=== PATIENT | female | born 1965 | race Caucasian/White ===

== ENCOUNTER 2018-10-06 09:54 | Inpatient (IN) ==
[2018-10-06] MEDS ORDERED: Sodium Chloride 0.9% 1,000 ML PRIMARY IV ONE (10:22)
--- NOTE | 2018-10-06 10:44 | PDOC ---
General Adult HPI - General Chief Complaint: Genitourinary Complaint Stated Complaint: RIGHT FLANK PAIN, FEVER/CHILLS Date Seen by Provider: 10/06/18 Time Seen by Provider: 10:00 Source: POSITIVE: Patient Exam Limitations: POSITIVE: No limitations Nurse's Notes Reviewed & Considered: Yes - History of Present Illness Initial Comment: The patient is a 53-year-old female who presents to the emergency department with complaints of cloudy urine and some right flank pain. The patient does have a history of renal calculi. She was also seen here in the emergency department approximately 3 weeks ago with complaints of right flank pain. She was found to have 2 nonobstructing stones in the right kidney as well as evidence of a UTI. She was treated with a dose of IV antibiotic as well as oral antibiotics at home. The culture ended up growing out Klebsiella which was sensitive to cephalosporins. The patient states that she felt well while she was taking her antibiotics and for about a week afterward. For the past for 5 d ays however she has noticed that she has had some cloudy urine. Yesterday she had some right flank pain which has now resolved. She does however have some subjective chills and general malaise. She is unsure whether she was running a fever at home. She denies any current abdominal pain. She did have a lumbar surgery approximately 2 months ago and had to have a seroma drained. She denies any increase in back pain. Her noticed that there was some swelling in the area of the incision. She denies any increased leg numbness or weakness although she does have some continued left leg symptoms after her surgery. Have you received a tetanus shot in the past 10 years?: Unknown - Patient Home Medications Home Medications: Home Medications Hydrocodone/Acetaminophen [Hydrocodon-Acetaminoph 7.5-325] 1 ea PO Q6-8H PRN Ibuprofen 600 mg PO Q6H PRN 10/06/18 - Patient Allergies Allergies/Adverse Reactions: Allergies Allergy/AdvReac Type Severity Reaction Status Date / Time tetracycline [Tetracycline] Allergy Intermediate SWELLING Verified 10/06/18 09:58 Past Medical History - heen HEENT History: Dentures/Partials Cardiovascular History: Denies History Respiratory History: Denies History, Snoring Gastrointestinal History: GERD Additional Gastrointestinal History: OCCASIONAL GERD Genitourinary History: Kidney Stones Additional Genitourinary History: MULTIPLE KIDNEY STONES Endocrine History: Denies History Musculoskeletal History: Back Pain Prosthesis or Implant: No Neurological History: Denies History Blood Disorders: Denies History Psychiatric History: Denies History History of Sexually Transmitted Diseases: No Female Reproductive History: Tubal Ligation, Hysterectomy Obstetrical History: Denies History Cancer History: Denies History In Past Year Been Physically Harmed or Verbally Threatened: No History of MDRO: No History of Other Communicable Diseases: No Tobacco Use: Former Smoker Alcohol Use: None In the Past 12 Months, Have Used or Abuse Any Substance: None Previous Surgical History: Yes Type / Date of Surgery: TUBAL/ BACK SX X2/TOTAL HYST/LITHOTRIPSY/TONSILS Anesthesia Reactions: No Malignant Hyperthermia: No Significant Family History: No pertinent family hx, Heart disease, Cancer, Diabe brett, Renal disease Past Medical History Reviewed: Reviewed - No Changes ROS - Limitations ROS Limitations: No Limitations Constitution: REPORTS: Chills Cardiovascular: REPORTS: Denies Cardiac Symptoms Respiratory: REPORTS: Denies Resp Symptoms Neurological: REPORTS: Denies Neuro Symptoms Gastrointestinal: DENIES: Abdominal Pain, Nausea, Vomitting Musculoskeletal: REPORTS: Denies MS Symptoms Genitourinary: REPORTS: Flank Pain (Right-sided), Other (Cloudy urine). DENIES: Dysuria, Difficulty Urinating Eyes: REPORTS: Denies Symptoms ENT: REPORTS: Denies Symptoms Skin: DENIES: Rash General Adult Exam - General Appearance General Appearance: POSITIVE: Alert, Cooperative, No Acute Distress - HEENT HEENT: POSITIVE: Head Inspection Nml, Eyes Inspection Nml, Ears Inspection Nml, Nose Inspection Nml, Pharynx Inspect. Nml, PERRL - Neck Neck: POSITIVE: Normal Inspection. NEGATIVE: Lymphadenopathy - Respiratory Respiratory: POSITIVE: No Respiratory Distress, Breath Sounds Normal - Cardiovascular Cardiovascular: POSITIVE: Regular Rate & Rhythm, No Murmur Peripheral Pulses: Dorsalis-pedis (R): 2+, Dorsalis-pedis (L): 2+ - Abdomen Abdomen: Soft: (All Quadrants), Denies Tenderness: (All Quadrants), No Distention: (All Quadrants) - Back Back: POSITIVE: Other (She does have a small incision in the lower lumbar region, there is no erythema or induration, there is some slight puffiness to the area however there does not appear to be any evidence of infection). NEGATIVE: CVA Tenderness - Extremities Extremity: Normal ROM: (All Extremities), Normal Inspection: (All Extremities) - Neurological / Psychological Neurological: POSITIVE: Oriented X3, vp customer service Normal As Tested, Motor Normal, Sensation Normal General Adult Progress - Results Reviewed by me Xrays/CTs/US Reviewed by me: Yes Discussed with Radiologist: Yes Radiology Findings: CT scan of the abdomen and pelvis without IV contrast shows 2 nonobstructing stones in the right kidney unchanged from previous CT. There is some mild perinephric stranding at the top of the right kidney which is new from previous CT as well as some perinephric stranding around the left kidney which appears unchanged from previous CT. No other acute findings per radiologist. Lab Results Reviewed by Me: Yes Lab Results:: Laboratory Results 10/06/18 10/06/18 10/06/18 10:27 10:27 10:27 WBC 9.67 RBC 3.97 L Hgb 12.0 Hct 35.5 L MCV 89.4 MCH 30.2 MCHC 33.8 RDW Std Deviation 41.2 RDW Coeff of Sugar 12.9 Plt Count 177 MPV 9.7 Immature Gran % (Auto) 0.4 Neut % (Auto) 78.1 Lymph % (Auto) 14.1 Giles % (Auto) 7.1 Eos % (Auto) 0.1 Baso % (Auto) 0.2 Immature Gran # (Auto) 0.04 Neut # (Auto) 7.55 Lymph # (Auto) 1.36 Giles # (Auto) 0.69 Eos # (Auto) 0.01 Baso # (Auto) 0.02 WBC Morphology Comment Normal morphology Plt Morphology Comment Normal morphology RBC Morph Comment Normal morphology VBG pH VBG pCO2 VBG HCO3 VBG Base Excess Sodium 132 L Potassium 3.4 L Chloride 95 L Carbon Dioxide 24 Anion Gap 13 BUN 17 Creatinine 0.9 Estimated GFR > 60 BUN/Creatinine Ratio 18.88 Glucose 455 H* Mean Blood Glucose Hemoglobin A1c Calculated Osmolality 295.0 H Lactic Acid 2.8 H Calcium 10.0 Total Bilirubin 0.6 AST 17 ALT 13 Alkaline Phosphatase 138 H C-Reactive Protein 37.3 H Total Protein 8.0 Albumin 4.2 Globulin 3.9 Albumin/Globulin Ratio 1.00 L Ur Collection Type Urine Color Urine Clarity Urine pH Ur Specific [place] Urine Protein Urine Glucose (UA) Urine Ketones Urine Occult Blood Urine Nitrate Urine Bilirubin Urine Urobilinogen Ur Leukocyte Esterase Urine RBC Urine WBC Ur Squamous Epith Cells Ur Renal Epithelial Cell Urine Crystals Urine Bacteria Urine Casts Urine Mucus Urine Trichomonas Urine Yeast Ur Culture Indicated? 10/06/18 10/06/18 10/06/18 10:39 11:41 Unknown WBC RBC Hgb Hct MCV MCH MCHC RDW Std Deviation RDW Coeff of Sugar Plt Count MPV Immature Gran % (Auto) Neut % (Auto) Lymph % (Auto) Giles % (Auto) Eos % (Auto) Baso % (Auto) Immature Gran # (Auto) Neut # (Auto) Lymph # (Auto) Giles # (Auto) Eos # (Auto) Baso # (Auto) WBC Morphology Comment Plt Morphology Comment RBC Morph Comment VBG pH 7.43 H VBG pCO2 30 L VBG HCO3 20 L VBG Base Excess -4 L Sodium Potassium Chloride Carbon Dioxide Anion Gap BUN Creatinine Estimated GFR BUN/Creatinine Ratio Glucose Mean Blood Glucose 275.971 Hemoglobin A1c 10.87 H Calculated Osmolality Lactic Acid Calcium Total Bilirubin AST ALT Alkaline Phosphatase C-Reactive Protein Total Protein Albumin Globulin Albumin/Globulin Ratio Ur Collection Type Voided specimen Urine Color Yellow Urine Clarity Clear Urine pH 5.0 Ur Specific [place] 1.020 Urine Protein 100 A Urine Glucose (UA) 500 Urine Ketones 15 Urine Occult Blood Moderate H Urine Nitrate Negative Urine Bilirubin Small Urine Urobilinogen 0.2 Ur Leukocyte Esterase Moderate Urine RBC 20-30 Urine WBC >100 H Ur Squamous Epith Cells Few Ur Renal Epithelial Cell None Urine Crystals None Urine Bacteria Many H Urine Casts None Urine Mucus None Urine Trichomonas None Urine Yeast None Ur Culture Indicated? Culture set CBC and BMP: 10/06/18 10:27 10/06/18 10:27 - Patient's Progress MDM / ED Course: The patient was somewhat tachycardic on arrival. Blood cultures and lactate were drawn with initial IV start. The patient did receive 1 L bolus of normal saline. She was not having any active pain here in the emergency department. The patient's blood work reveals a normal white blood cell count, her CRP is significantly elevated at 37. Urinalysis reveals greater than 100 WBCs as well as some RBCs, culture is pending. Her lactate is mildly elevated at 2.8. Her blood sugar was also significantly elevated at 455. Subsequent venous blood gas reveals a normal pH. After administration of fluids her blood sugar had come down to 334. Her hemoglobin A1c is markedly elevated over 10. I did discuss the patient with Dr. Maharaj and he recommended repeat imaging to make sure that she has not developed any obstruction. The CT of the abdomen and pelvis was repeated and shows continued nonobstructing stones in the right kidney unchanged from previous imaging. She does have some mild perinephric stranding around the right kidney which was not present on the previous CT. She also continues to have some left-sided perinephric stranding basically unchanged from previous imaging. No other acute findings per radiologist. The patient did receive 2 g of Rocephin IV and will be admitted per Dr. Maharaj for further care. The patient is in agreement with this plan. - Consult Counseled: POSITIVE: Patient, Family, RE: Lab Results, RE: Radiology Results, RE: DX, RE: Need for F/U Patient Care Time - Estimated PCT Patient Care Time (In Minutes): 50 Vital Signs - Recent Vital Signs Vital Signs: Vital Signs (Last 8 hours) Temp Pulse Resp BP Pulse Ox 10/06/18 09:57 97.5 F 132 H 16 117/68 98 - VS Reviewed Vital Signs Reviewed: Yes Discharge Clinical Impression: Pyelonephritis, Hyperglycemia Discharge Disposition: Admit to Inpatient Condition: Fair Follow Up With: JOSE SAUCEDO [Primary Care Provider] - Date Decision to Admit to Inpatient: 10/06/18 Time Decision to Admit to Inpatient: 12:45
[2018-10-06 10:48] LABS: BASOPHILS # (AUTO) 0.02 10*3/UL; BASOPHILS % (AUTO) 0.2 % (0-1); EOSINOPHILS # (AUTO) 0.01 10*3/UL; EOSINOPHILS % (AUTO) 0.1 % (0-8); Hematocrit [HCT] 35.5 % (37.0-47.0); LYMPHOCYTES # (AUTO) 1.36 10*3/uL; MEAN CORPUSCULAR HEMOGLOBIN 30.2 PG (27-31); MEAN CORPUSCULAR HGB CONC 33.8 g/dL (33-37); MEAN CORPUSCULAR VOLUME 89.4 FL (81-99); MEAN PLATELET VOLUME 9.7 FL (7.4-12.2); MONOCYTES # (AUTO) 0.69 10*3/UL (0.3-0.8); MONOCYTES % (AUTO) 7.1 % (5-15); NEUTROPHILS # (AUTO) 7.55 10*3/UL; NEUTROPHILS % (AUTO) 78.1 % (50-80); RED BLOOD COUNT 3.97 10^6/uL (4.20-5.40)
[2018-10-06 10:51] LABS: BILIRUBIN,URINE SMALL (NEG); CLARITY,URINE CLEAR (CLEAR); COLOR,URINE YELLOW (Y); GLUCOSE, URINE (UA) 500 mg/dL (NEG); OCCULT BLOOD,URINE MODERATE (NEG); PROTEIN,URINE 100 mg/dl (NEG); UROBILINOGEN,URINE 0.2 EU/dL (0.2)
[2018-10-06 10:52] LABS: PLATELET MORPHOLOGY COMMENT NORMAL MORPHOLOGY (NORM); RBC MORPHOLOGY COMMENT NORMAL MORPHOLOGY (NORM); WBC MORPHOLOGY COMMENT NORMAL MORPHOLOGY (NORM)
[2018-10-06 10:59] LABS: BLOOD UREA NITROGEN 17 mg/dL (7-22); BUN/CREATININE RATIO 18.88 (6-20); SERUM ALBUMIN 4.2 g/dL (3.5-4.8)
[2018-10-06 11:02] LABS: BACTERIA,URINE MANY; RBC,URINE 20-30 /hpf; SQUAMOUS EPITHELIAL CELL,UR FEW; URINE SAMPLE TYPE VOIDED SPECIMEN; WBC,URINE >100
[2018-10-06] MEDS ORDERED: cefTRIAXone Inj 2 GM in Sodium Chloride 0.9% 100 ML IV ONE (11:38)
[2018-10-06 11:46] LABS: HEMOGLOBIN A1C 10.87 % (4.2-6.0)
[2018-10-06 11:57] LABS: VENOUS PH 7.43 (7.32-7.42)
--- NOTE | 2018-10-06 12:52 | DI ---
CT ABDOMEN SCAN WITHOUT IV CONTRAST, 10/06/2018 11:39 AM : Clinical History: Right flank pain. Previous Exam: 09/13/2018. IV Contrast: None administered. Oral Contrast: No oral contrast ordered. Rectal Contrast: No rectal contrast ordered. Lungs: No infiltrate or effusion. Jaron A and Jaron B lines are present indicating chronic intersti tial pulmonary fibrosis. Liver: Hepatomegaly. There is diffuse fatty infiltration. Gallbladder: Grossly normal. Adrenal Glands: Normal. Spleen: Mild splenomegaly. Otherwise normal. Pancreas: Normal. Kidneys: Normal size, shape, position and contour. No hydronephrosis or hydroureter. No left renal or ureteral calculi. There is a small 2-3 mm nonobstructing calculus in the right upper pole and a nono bstructing 6 mm calculus in a right lower pole calyx. These have not changed. On the prior study, the re was perinephric stranding of the left kidney and this has not changed. Since the prior scan, mild perinephric stranding has developed above the upper pole of the right kidney. Lymph Nodes: Normal. Masses: None. Ascites: No ascites. Free Air: None. Spine: Normal lower thoracic and lumbar spine except severe disc space narrowing with sclerosis of th e endplates at L5-S1. READIN. No hydronephrosis or hydroureter. There are 2 right-sided nonobstructing renal calculi are unchan ged and there is no right ureteral calculus. 2. No change in the left-sided perinephric stranding from the prior exam. Interval development of a small amount of perinephric stranding above the upper pole of the right kidney. 3. Hepatosplenomegaly with fatty infiltration of the liver. 4. Chronic interstitial pulmonary fibrosis. CT PELVIS SCAN WITHOUT IV CONTRAST, 10/06/2018 11:39 AM: Clinical History: See above. Previous Exam: 09/13/2018. Contrast: None administered. Masses: No masses or enhancing lesions. Ascites: None. Free Air: None. Lymph Nodes: No adenopathy. Appendix: Normal. Small Bowel: Normal small bowel, terminal ileum, and ileocecal valve. Colon: Normal. Uterus: Status post hysterectomy. Ovaries: Status post bilateral salpingo-oophorectomy. Bladder: Normal. Hernias: There is a very small umbilical hernia through which only mesenteric fat has herniated. Bony Pelvis: Normal sacrum, pelvic bones, and hips. READING: Normal CT scan of the pelvis without IV contrast.
--- NOTE | 2018-10-06 12:55 | PDOC ---
HPI - History of Present Illness History of Present Illness: This very nice 53-year-old female admitted to the emergency room with complaints of the right flank pain and cloudy urine. She was seen in the emergency depar tment 3 weeks ago with the complaints of right flank pain that time she had 2 nonobstructing stones in the right kidney as well as GI is treated with IV antibiotics in the ER and then oral antibiotics at home culture showed Klebsiella yesterday she had flank pain and cloudy urine and some chills. She also had the surgery lumbar 2 months ago and had a seroma drained at that time. Repeat CT scan shows no obstruction from stones. She has no white count no left shift. She does have elevated sugar of 400 range and also hemoglobin A1c is 10.4 WBC is new onset Diabetes Past Medical History Medical History: Lower back chronic back pain Tobacco Use: Former Smoker In the Past 12 Months, Have Used or Abuse Any of the Following Substance: None Medication / Allergies Home Medications: Home Medications Medication Instructions Recorded Confirmed Type Hydrocodone/Acetaminophen 1 ea PO Q6-8H PRN 10/06/18 10/06/18 History [Hydrocodon-Acetaminoph 7.5-325] Ibuprofen 600 mg PO Q6H PRN 10/06/18 10/06/18 History Allergies/Adverse Reactions: Allergies Allergy/AdvReac Type Severity Reaction Status Date / Time tetracycline [Tetracycline] Allergy Intermediate SWELLING Verified 10/06/18 09:58 Review of Systems - Review of Systems All Systems: Reviewed & No Additional Complaints Except as Stated - Cardiovascular Cardiovascular: DENIES: Negative System Review, Chest Pain, Edema, Syncope, Palpitations, Orthopnea, Paroxysmal Nocturnal Dyspnea, Other, See HPI - Gastrointestinal Gastrointestinal / Abdominal: DENIES: Negative System Review, Nausea, Vomiting, Diarrhea, Constipation, Abdominal Pain, Bloody Stool, Poor Appetite, Heartburn, Regurgitation, Bloating, Lactose Intolerance, Melena, Bright Red Blood per Rectum, Other, See HPI - Genitourinary Genitourinary: DENIES: Negative System Review, Pain, Burning, Hematuria, Incontinence, Urgency, Hesitant Stream, Decreased Stream, Nocutria, Discharge, Sexual Dysfunction, Other, See HPI Exam - Vitals Vital Signs: Vital Signs Temperature 97.5 F Temperature Source Temporal Artery Scan Pulse Rate [Pulse Oximeter 132 Right] Respiratory Rate 16 Blood Pressure [Left Arm] 117/68 Pulse Ox 98 Oxygen Delivery Method Room Air Height 5 ft 3 in Weight 190 lb - General General Appearance: No Acute Distress, Cooperative - Head Head Exam: Normal Inspection, Normocephalic, Atraumatic - Eye Eye Exam: POSITIVE: Normal Appearance, PERRL, EOMI, No Scleral Icterus - Neck Neck Exam: Normal Inspection, Full ROM, No Tenderness, No Lymphadenopathy, No Thyromegaly, JVP is not Raised - Respiratory Respiratory Exam: POSITIVE: Clear to Auscultation - Bilaterally, Breathing Non Labored, Normal To Percussion, Normal to Percussion and Palpation - Cardiovascular Cardiovascular Exam: POSITIVE: RRR, No Murmur, No Clicks, No Gallops, No Rubs, PMI Non-Displaced - GI/Abdominal GI/Abdominal Exam: POSITIVE: Normal Bowel Sounds, Non Tender, Non Distended, Soft, No Masses, No Hepatomegaly, No Splenomegaly, No Organomegaly - Extremities Extremities Exam: POSITIVE: Normal Inspection, Full ROM, Normal Capillary Refill, No Clubbing Present, No Edema Present, No Cyanosis Present, Negative Eleni's sign, Dosalis Pedis Pulses - Stong & Regular - Back Back Exam: POSITIVE: Normal Inspection, Full ROM, No CVA Tenderness Additional Back Exam Details: No seroma no redness on the incision for lower back surgery - Neurological Neurological Exam: POSITIVE: Alert, No Facial Droop, Speech Intact / Clear Results - Labs CBC and BMP: 10/06/18 10:27 10/06/18 10:27 Assessment and Plan - Patient Problems (1) New onset type 2 diabetes mellitus Current Visit: Yes Status: Acute Comment: Lantus 10 mg check sugars before meals and at bedtime and sliding scale Code(s): E11.9 - Type 2 diabetes mellitus without complications (2) Pyelonephritis Current Visit: No Status: Acute Comment: Rocephin 2 g daily Code(s): N12 - Tubulo-interstitial nephritis, not specified as acute or chronic
[2018-10-06] MEDS ORDERED: DOCUSATE 100 MG CAPSULE PO PRN (13:18)
[2018-10-06] MEDS ORDERED: CALCIUM CARBONATE 500 MG (TUMS) CHEWABLE TABLET PO PRN (13:18)
[2018-10-06] MEDS ORDERED: LIDOCAINE W/ SODIUM BICARB 0.5 ML SYR SUBD PRN (13:18)
[2018-10-06] MEDS ORDERED: ONDANSETRON 4 MG/2 ML VIAL IVP PRN (13:18)
[2018-10-06] MEDS ORDERED: HYDROcodone-APAP 7.5 MG-325 MG TABLET PO PRN (13:18)
[2018-10-06] MEDS: Lactated Ringers 1,000 ML PRIMARY IV SCH ×2 (13:50→21:22)
[2018-10-06] MEDS: Insulin Lispro Flexpen 300 UNIT/3 ML INSULN.PEN SUBCUT SCH ×3 (14:24→21:25)
[2018-10-06] MEDS: MORPHINE SULFATE 2 MG/1 ML IVP PRN ×3 (16:54→21:23)
[2018-10-06] MEDS: HYDROcodone-APAP 7.5 MG-325 MG TABLET PO PRN ×2 (18:04→22:20)
[2018-10-06] MEDS: ACETAMINOPHEN 325 MG TABLET PO PRN (21:23)
[2018-10-06] MEDS: CYCLOBENZAPRINE 10 MG TABLET PO SCH (21:23)
[2018-10-06] MEDS: Insulin Glargine SoloStar Inj 100 UNIT/ML INSULN.PEN SUBCUT SCH (21:25)
[2018-10-07] MEDS: HYDROcodone-APAP 7.5 MG-325 MG TABLET PO PRN ×5 (02:24→20:59)
[2018-10-07] MEDS: Lactated Ringers 1,000 ML PRIMARY IV SCH ×2 (04:38→14:12)
[2018-10-07] MEDS: ACETAMINOPHEN 325 MG TABLET PO PRN ×2 (04:38→20:34)
[2018-10-07 04:54] LABS: BASOPHILS # (AUTO) 0.02 10*3/UL; BASOPHILS % (AUTO) 0.2 % (0-1); EOSINOPHILS # (AUTO) 0.03 10*3/UL; EOSINOPHILS % (AUTO) 0.3 % (0-8); Hemoglobin [HGB] 10.9 g/dL (12.0-16.0); LYMPHOCYTES # (AUTO) 1.55 10*3/uL; MEAN CORPUSCULAR HEMOGLOBIN 30.4 PG (27-31); MEAN CORPUSCULAR HGB CONC 34.1 g/dL (33-37); MEAN CORPUSCULAR VOLUME 89.4 FL (81-99); MEAN PLATELET VOLUME 9.8 FL (7.4-12.2); MONOCYTES # (AUTO) 0.86 10*3/UL (0.3-0.8); MONOCYTES % (AUTO) 7.6 % (5-15); NEUTROPHILS # (AUTO) 8.76 10*3/UL; NEUTROPHILS % (AUTO) 77.7 % (50-80); RED BLOOD COUNT 3.58 10^6/uL (4.20-5.40)
[2018-10-07 05:01] LABS: PLATELET MORPHOLOGY COMMENT NORMAL MORPHOLOGY (NORM); RBC MORPHOLOGY COMMENT NORMAL MORPHOLOGY (NORM); WBC MORPHOLOGY COMMENT NORMAL MORPHOLOGY (NORM)
[2018-10-07 05:22] LABS: BLOOD UREA NITROGEN 13 mg/dL (7-22); SERUM ALBUMIN 3.2 g/dL (3.5-4.8)
[2018-10-07] MEDS: Insulin Lispro Flexpen 300 UNIT/3 ML INSULN.PEN SUBCUT SCH ×4 (07:00→20:31)
[2018-10-07] MEDS: POTASSIUM CHLORIDE 20 MEQ TAB PO SCH ×2 (09:01→20:34)
[2018-10-07] MEDS: CYCLOBENZAPRINE 10 MG TABLET PO SCH ×3 (09:02→20:34)
--- NOTE | 2018-10-07 09:33 | PDOC(PROG) ---
Interval History: Patient has a headache this morning her sugars look better no flank pain no chest pain Objective : Data - Labs CBC and BMP: 10/07/18 04:30 10/07/18 04:30 Objective : Exam - General General Appearance: Cooperative - Respiratory Respiratory Exam: Clear to Auscultation - Bilaterally, Breathing Non Labored, Normal To Percussion, Normal to Percussion and Palpation - Cardiovascular Cardiovascular Exam: RRR, No Murmur, No Clicks, No Gallops, No Rubs, PMI Non- Displaced - GI/Abdominal GI/Abdominal Exam: Normal Bowel Sounds, Non Tender, Non Distended, Soft, No Masses, No Hepatomegaly, No Splenomegaly, No Organomegaly - Extremities Extremities Exam: No Clubbing Present, No Edema Present, No Cyanosis Present - Neurological Neurological Exam: Alert, Oriented x 3, No Facial Droop, Speech Intact / Clear Assessment and Plan - Patient Problems (1) New onset type 2 diabetes mellitus Current Visit: Yes Status: Acute Comment: Sugars much better received 10 units of Lantus last night sugars at 189 this morning I believe 10 units might be appropriate consider adding metformin by mouth and following up with primary care physician also consult diabetic diabetic education Code(s): E11.9 - Type 2 diabetes mellitus without complications (2) Pyelonephritis Current Visit: No Status: Acute Comment: Continue Rocephin Code(s): N12 - Tubulo-interstitial nephritis, not specified as acute or chronic (3) Chronic back pain Current Visit: Yes Status: Acute Comment: On narcotics and muscle relaxers patient was already on these at home by her back specialist Dr. Pryor Code(s): M54.9 - Dorsalgia, unspecified; G89.29 - Other chronic pain
[2018-10-07] MEDS: KETOROLAC 15 MG/1 ML VIAL IVP PRN ×3 (10:03→21:55)
[2018-10-07] MEDS ORDERED: cefTRIAXone Inj 2 GM in Sodium Chloride 0.9% 100 ML IV SCH (12:00)
[2018-10-07] MEDS: Insulin Glargine SoloStar Inj 100 UNIT/ML INSULN.PEN SUBCUT SCH (20:35)
[2018-10-07] MEDS: Meropenem Inj 1 GM in Sodium Chloride 0.9% 100 ML IV SCH (20:59)
--- NOTE | 2018-10-07 21:30 | PDOC(PROG) ---
General Note Progress Note: Patient's continue to run fever, I spoke with the Dr. Jimenez, urologist at [facility] because of presence of renal stones he suggested to continue antibiotics I did discuss with him that I'm switching to meropenem until we have identification and he agreed. He suggested CT with IV contrast tomorrow if she continue to run fever to rule out abscesses. He said usually for pyelonephritis it takes few days for the fever to come down.
[2018-10-08] MEDS: HYDROcodone-APAP 7.5 MG-325 MG TABLET PO PRN ×5 (01:27→19:22)
[2018-10-08] MEDS: Meropenem Inj 1 GM in Sodium Chloride 0.9% 100 ML IV SCH ×3 (04:40→20:02)
[2018-10-08] MEDS: KETOROLAC 15 MG/1 ML VIAL IVP PRN ×3 (04:58→20:02)
[2018-10-08 07:05] LABS: BASOPHILS # (AUTO) 0.01 10*3/UL; BASOPHILS % (AUTO) 0.1 % (0-1); EOSINOPHILS # (AUTO) 0.02 10*3/UL; EOSINOPHILS % (AUTO) 0.2 % (0-8); Hematocrit [HCT] 31.4 % (37.0-47.0); Hemoglobin [HGB] 10.6 g/dL (12.0-16.0); LYMPHOCYTES # (AUTO) 0.92 10*3/uL; MEAN CORPUSCULAR HEMOGLOBIN 30.7 PG (27-31); MEAN CORPUSCULAR HGB CONC 33.8 g/dL (33-37); MEAN PLATELET VOLUME 9.5 FL (7.4-12.2); NEUTROPHILS # (AUTO) 6.69 10*3/UL; NEUTROPHILS % (AUTO) 82.8 % (50-80); RED BLOOD COUNT 3.45 10^6/uL (4.20-5.40)
[2018-10-08 07:10] LABS: PLATELET MORPHOLOGY COMMENT NORMAL MORPHOLOGY (NORM); RBC MORPHOLOGY COMMENT NORMAL MORPHOLOGY (NORM); WBC MORPHOLOGY COMMENT NORMAL MORPHOLOGY (NORM)
[2018-10-08] MEDS: Insulin Lispro Flexpen 300 UNIT/3 ML INSULN.PEN SUBCUT SCH ×4 (07:10→20:32)
[2018-10-08 07:14] LABS: BLOOD UREA NITROGEN 15 mg/dL (7-22)
[2018-10-08] MEDS: ACETAMINOPHEN 325 MG TABLET PO PRN (07:19)
--- NOTE | 2018-10-08 07:28 | PDOC(PROG) ---
Date of Service: 10/08/18 Time of Service: 07:00 Interval History: Subjective Patient came into the hospital with history of pain in her right side, foggy urine, not thinking clearly and headaches. Was found to have pyelonephritis. She did report that 3 or 4 weeks ago she had a kidney infection she was given IV Rocephin once and then she was prescribed oral antibiotics however she doesn't know the name. She said she did okay after that until last week when she noticed a change in the urine color. She had issues with her back and she had surgery May last year. She saw her surgeon last week on Saturday and did nerve studies. She thinks that she may need to have fusion but he told her that she need to quit smoking before he would do surgery again on her. She did say she felt short of breath after she walked to the bathroom earlier today. Objective : Data - Labs CBC and BMP: 10/08/18 07:02 10/08/18 07:02 Objective : Exam - General General Appearance: No Acute Distress, Cooperative - Head Head Exam: Normal Inspection - Eye Eye Exam: Normal Appearance - ENT ENT Exam: Normal Exam - Neck Neck Exam: Normal Inspection - Respiratory Respiratory Exam: Clear to Auscultation - Bilaterally - Cardiovascular Cardiovascular Exam: Tachycardia - GI/Abdominal GI/Abdominal Exam: Normal Bowel Sounds, Non Distended, Soft, No Organomegaly Additional GI/Abdominal Exam Details: Minimal tenderness in the right flank. - Rectal Rectal Exam: Deferred - External Exam: Deferred - Extremities Extremities Exam: Normal Inspection - Back Back Exam: Normal Inspection - Neurological Neurological Exam: Alert, Oriented x 3, CN II-XII Intact, No Facial Droop, Speech Intact / Clear - Psychiatric Psychiatric Exam: Normal Affect Assessment and Plan - Patient Problems (1) Pyelonephritis Current Visit: Yes Status: Acute Comment: Yesterday she continued to run fever as high as 103, I switched her antibiotics to meropenem until I have culture result. It's not clear to me what kind of oral antibiotic she received, she may be having a recurrence of infection. May be secondary to the stones. We'll try to figure out with oral antibiotic she received. We'll discuss with infectious disease also. Code(s): N12 - Tubulo-interstitial nephritis, not specified as acute or chronic (2) New onset type 2 diabetes mellitus Current Visit: Yes Status: Acute Comment: Blood sugar is acceptable with the current insulin dosage continue. Code(s): E11.9 - Type 2 diabetes mellitus without complications (3) Chronic back pain Current Visit: Yes Status: Acute Comment: Continue current pain medications as needed. Code(s): M54.9 - Dorsalgia, unspecified; G89.29 - Other chronic pain (4) Tachycardia Current Visit: Yes Status: Acute Comment: Looks sinus on the monitor, will order an EKG. Will order cardiodynamics. I did order a BNP. Because of the shortness of breath I will do a CT of her chest will do CT of the abdomen to look for kidney abscess because of the high fever that she had last night. We'll give her a trial of fluids and see whether that would help lower her heart rate. Will order T4 and TSH. Code(s): R00.0 - Tachycardia, unspecified
[2018-10-08] MEDS: Sodium Chloride 0.9% 250 ML IV SCH ×5 (08:02→11:35)
[2018-10-08] MEDS: CYCLOBENZAPRINE 10 MG TABLET PO SCH ×3 (08:41→20:03)
[2018-10-08] MEDS: POTASSIUM CHLORIDE 20 MEQ TAB PO SCH (08:41)
--- NOTE | 2018-10-08 08:48 | EKG ---
[address] [address] Measurements Intervals [place] Rate: 120 P: 66 TX: 171 QRS: 34 QRSD: 89 T: 47 QT: 304 QTc: 375 Interpretive Statements SINUS TACHYCARDIA ABNORMAL RHYTHM ECG No previous ECG available for comparison Electronically Signed On 10-08-18 11:45:31 MST by Adam Muñoz [email or web address]
--- NOTE | 2018-10-08 09:34 | DI ---
CT ANGIOGRAM OF THE CHEST, 10/08/2018 7:23 AM : Clinical History: Tachycardia. Shortness of breath. Previous Exam: None at this facility. Technique: Scans from base of neck to lung bases with IV contrast. Bolus tracking protocol was used f or timing the injection. Non-MIPS and MIPS sagittal/coronal images generated. IV Contrast: 75 mL of Isovue 300. Base of Neck: Normal. Nodes: Normal axillary and supraclavicular lymph nodes. There are mildly enlarged lymph nodes in the superior mediastinum, in the subcarinal region, and in both marija, more so on the right side than the left. Heart: Normal. Scattered calcifications are present in the middle third of the LAD in the proximal po rtion of the left circumflex artery and right coronary artery. Aorta: Normal thoracic aorta. No aneurysm or dissection. Pulmonary Arteries: Normal. No pulmonary emboli or infarcts; no pulmonary hypertension. Lungs: There are isolated patchy areas of "groundglass" opacification throughout the lungs. There are extensive Jaron A and Jaron B lines present in this is more suggestive of fluid in the interstitia l space rather than severe fibrosis. Effusion(s): Very small right pleural effusion. Nodules: None. Bony Structures: Normal visualized portions of ribs, sternum, scapulae, clavicles, and shoulders. Nor mal visualized portions of thoracic spine. READIN. Normal CTA of the chest. There are no pulmonary emboli or pulmonary infarcts. 2. The heart appears normal but with calcifications in all 3 major coronary artery distributions. Th ere are extensive and prominent Jaron B lines Jaron B lines and the appearance is more compatible w ith fluid in the interstitial space secondary to either CHF or fluid overload rather than extensive p ulmonary fibrosis. This can be confirmed with PA and lateral chest x-rays. Small right pleural effusi on. 3. There are multiple patchy areas of "groundglass" opacification and this carries a large and nonsp ecific differential for etiologies. Infection is one possibility. This should be correlated with the clinical findings.
--- NOTE | 2018-10-08 09:55 | DI ---
CT ABDOMEN SCAN WITH IV CONTRAST, 10/08/2018 7:24 AM : Clinical History: Pyelonephritis. Persistent fever. Previous Exam: 10/06/2018. IV Contrast: This is the same bolus of contrast used for the CT angiogram of the chest. Oral Contrast: No oral contrast ordered. Rectal Contrast: No rectal contrast ordered. Liver: Hepatomegaly with diffuse fatty infiltration. Gallbladder: Grossly normal. Adrenal Glands: Normal. Spleen: Mild splenomegaly. Pancreas: Normal. Kidneys: Normal size, shape, position and contour. No hydronephrosis or hydroureter. No change in the 2 calculi seen in the right kidney and there is no right ureteral calculus. No left renal or uretera l calculi. Perinephric stranding seen on the previous scan for the upper pole of the right kidney is at worst the same and probably has improved slightly. There is no change in the perinephric stranding of the left kidney. Perfusion to the right upper pole medially and the lower pole of the left kidney anteriorly is decreased compared to the remaining portions of the renal parenchyma. This pattern is frequently visualized indicate pyelonephritis. Masses: None. Lymph Nodes: Normal. Ascites: No ascites. Free Air: None. Spine: Normal lower thoracic and lumbar spine. READIN. There are perfusion defects in the right upper pole and the left lower pole that are suggestive o f pyelonephritis. The severity of perinephric stranding of both kidneys is similar to the previous st udy with perhaps slight improvement of the stranding associated with the upper pole of the right kidn ey. 2. No change in the appearance of the 2 nonobstructing right renal calculi. 3. Hepatosplenomegaly with diffuse fatty infiltration of the liver. CT PELVIS SCAN WITH IV CONTRAST, 10/08/2018 7:24 AM: Clinical History: See above. Previous Exam: 10/06/2018. Contrast: Same bolus used for CT scans of the chest and abdomen. Masses: No masses or enhancing lesions. Ascites: None. Free Air: None. Lymph Nodes: No adenopathy. Appendix: Normal. Small Bowel: Normal small bowel, terminal ileum, and ileocecal valve. Colon: Normal. Uterus: Status post hysterectomy. Ovaries: Status post bilateral oophorectomy versus very atrophic ovaries. Bladder: Normal. Hernias: There is a small umbilical hernia through which only mesenteric fat has herniated. Bony Pelvis: Normal sacrum, pelvic bones, and hips. READING: Normal CT scan of the pelvis with IV contrast.
--- NOTE | 2018-10-08 10:23 | CD ---
[facility] [place] Interpretive Statements [email or web address]
[2018-10-08] MEDS ORDERED: HYDROcodone-APAP 7.5 MG-325 MG TABLET PO ONE (16:30)
[2018-10-08] MEDS: Insulin Glargine SoloStar Inj 100 UNIT/ML INSULN.PEN SUBCUT SCH (20:03)
[2018-10-09] MEDS: HYDROcodone-APAP 7.5 MG-325 MG TABLET PO PRN ×6 (00:07→21:09)
[2018-10-09] MEDS: POTASSIUM CHLORIDE 20 MEQ TAB PO SCH ×4 (00:07→21:08)
[2018-10-09] MEDS: KETOROLAC 15 MG/1 ML VIAL IVP PRN ×2 (02:43→21:40)
[2018-10-09] MEDS: Meropenem Inj 1 GM in Sodium Chloride 0.9% 100 ML IV SCH (04:33)
[2018-10-09 05:23] LABS: BASOPHILS # (AUTO) 0.01 10*3/UL; BASOPHILS % (AUTO) 0.1 % (0-1); EOSINOPHILS # (AUTO) 0.11 10*3/UL; EOSINOPHILS % (AUTO) 1.5 % (0-8); Hematocrit [HCT] 28.7 % (37.0-47.0); Hemoglobin [HGB] 9.4 g/dL (12.0-16.0); LYMPHOCYTES # (AUTO) 1.46 10*3/uL; MEAN CORPUSCULAR HEMOGLOBIN 29.6 PG (27-31); MEAN CORPUSCULAR HGB CONC 32.8 g/dL (33-37); MEAN CORPUSCULAR VOLUME 90.3 FL (81-99); MEAN PLATELET VOLUME 9.6 FL (7.4-12.2); MONOCYTES # (AUTO) 0.53 10*3/UL (0.3-0.8); MONOCYTES % (AUTO) 7.3 % (5-15); NEUTROPHILS # (AUTO) 5.11 10*3/UL; NEUTROPHILS % (AUTO) 70.6 % (50-80); RED BLOOD COUNT 3.18 10^6/uL (4.20-5.40)
[2018-10-09 05:30] LABS: PLATELET MORPHOLOGY COMMENT NORMAL MORPHOLOGY (NORM); RBC MORPHOLOGY COMMENT NORMAL MORPHOLOGY (NORM); WBC MORPHOLOGY COMMENT NORMAL MORPHOLOGY (NORM)
[2018-10-09 05:36] LABS: BLOOD UREA NITROGEN 11 mg/dL (7-22)
[2018-10-09] MEDS: Insulin Lispro Flexpen 300 UNIT/3 ML INSULN.PEN SUBCUT SCH ×4 (07:37→21:11)
--- NOTE | 2018-10-09 07:39 | PDOC(PROG) ---
Date of Service: 10/09/18 Time of Service: 07:45 Interval History: Subjective Patient feels she made improvement today. She said her head is not as foggy when she came in. No fever last night. No shortness of breath today. Objective : Data - Labs CBC and BMP: 10/09/18 05:00 10/09/18 05:00 Objective : Exam - General General Appearance: No Acute Distress, Cooperative - Head Head Exam: Normal Inspection - Eye Eye Exam: Normal Appearance - ENT ENT Exam: Normal Exam - Neck Neck Exam: Normal Inspection - Respiratory Respiratory Exam: Clear to Auscultation - Bilaterally - Cardiovascular Cardiovascular Exam: RRR - GI/Abdominal GI/Abdominal Exam: Normal Bowel Sounds, Non Tender, Non Distended, Soft, No Organomegaly - Rectal Rectal Exam: Deferred - External Exam: Deferred Exam: Deferred - Extremities Extremities Exam: Normal Inspection - Back Back Exam: Normal Inspection - Neurological Neurological Exam: Alert, Oriented x 3, CN II-XII Intact, No Facial Droop, Speech Intact / Clear, Moves All Extremities Equally - Psychiatric Psychiatric Exam: Normal Affect - Integumentary Integumentary Exam: Normal Color Assessment and Plan - Patient Problems (1) Pyelonephritis Current Visit: Yes Status: Acute Comment: Continue current antibiotics, I did speak with ID, Dr. Gaston he suggested a week of IV antibiotics and then a week of oral after that. I will speak with our cyber ops planner and see if she can get her IV antibiotics arranged in [place]. May order a PICC line later on today. I think she will need follow-up with both urology and ID. I did tell her the stone may be playing part in recurrence of the infection, to me it looks too small for intervention but I think she need an opinion from urology. Follow-up with ID to make sure that the infection is cleared. I did warn her that though this may not be the case she may need longer course of treatment to suppress the infection. Code(s): N12 - Tubulo-interstitial nephritis, not specified as acute or chronic (2) New onset type 2 diabetes mellitus Current Visit: Yes Status: Acute Comment: Continue insulin. Code(s): E11.9 - Type 2 diabetes mellitus without complications (3) Chronic back pain Current Visit: Yes Status: Acute Comment: Same pain medication Code(s): M54.9 - Dorsalgia, unspecified; G89.29 - Other chronic pain (4) Tachycardia Current Visit: Yes Status: Acute Comment: Probably secondary to inflammation from pyelonephritis and some dehydration, her heart rate is coming down. Continue current treatment. The CT that she had yesterday did show calcium deposits in the coronary arteries. I did mention that to her I did tell her that's probably she need to have a stress test at one point in time after she recovers from this illness. Code(s): R00.0 - Tachycardia, unspecified (5) Hypokalemia Current Visit: Yes Status: Acute Comment: Continue potassium replacement Code(s): E87.6 - Hypokalemia
[2018-10-09] MEDS: ACETAMINOPHEN 325 MG TABLET PO PRN ×2 (07:43→15:55)
[2018-10-09] MEDS: CYCLOBENZAPRINE 10 MG TABLET PO SCH ×3 (08:50→21:08)
[2018-10-09] MEDS ORDERED: Lidocaine 1% 10 MG/ML - 20 ML VIAL SUBCUT PRN (11:18)
[2018-10-09] MEDS ORDERED: LIDOCAINE 2% 20 MG/ML - 20 ML VIAL SUBCUT PRN (11:18)
[2018-10-09] MEDS: cefTRIAXone Inj 2 GM in Sodium Chloride 0.9% 100 ML IV SCH (12:45)
--- NOTE | 2018-10-09 15:52 | DI ---
AP CHEST X-RAY, 10/09/2018 11:18 AM : Clinical History: Acute pyelonephritis. The patient requires long-term IV antibiotic therapy. There a re fixation of PICC line catheter tip. Previous Exam: None at this facility. Soft Tissues: No acute soft tissue abnormality. Bones: Normal. Heart: Normal heart. Lungs: No infiltrates. Effusion(s): None. Mediastinum: Normal mediastinum. Nodules: No pulmonary nodules. Additional Findings: The PICC line catheter tip is in the distal superior vena cava Readin. Normal chest x-ray. 2. The PICC line catheter tip is in the distal superior vena cava.
--- NOTE | 2018-10-09 15:53 | DI ---
ULTRASOUND GUIDED VENOUS ACCESS, 10/09/2018 11:18 AM Clinical History: Acute pyelonephritis. The patient requires long-term IV antibiotic therapy. Previous Exam: None at this facility. Timeout: A "time out" session verified the patient's name and date of . Informed Consent: Using lay terminology, the patient was informed of benefits and risks, to include b ut not be limited to: allergies to medications (skin preparation agents, local anesthetic, and contra st agent if its use is indicated), infection, and blood clots in the catheterized vein with long time use. The patient appeared to comprehend this discussion and signed written consent for the procedure . Technique: Ultrasound was used to identify the left brachial vein for placement of the PICC line. Pun cture site was prepped with ChloraPrep with Tint and draped in the usual sterile fashion. 1% lidocain e without epinephrine was used for intradermal and subcutaneous local anesthesia without complication . Findings: This vein was successfully cannulated using realtime ultrasound guidance. The introducer scot priest was advanced and positioned without difficulty. Reading: Successful and uncomplicated cannulation of the left brachial vein.
--- NOTE | 2018-10-09 15:55 | DI ---
INSERTION OF PICC LINE, 10/09/2018 11:18 AM: Clinical History: Acute pyelonephritis. The patient will require long-term IV antibiotic therapy. Time Out: "Time out" session performed to verify patient's name and date of . Informed Consent: Using lay terminology, patient was informed of benefits of long-term IV access and risks of this procedure, to include but not be limited to: allergies to medications (skin preparation agents, local anesthetic, and contrast agent if used), infection, and possible blood clot formation in the arm related to the catheter. Patient appeared to comprehend this discussion and signed written consent for this procedure. Technique: Left arm prepped with ChloraPrep with Tint. Venipuncture achieved under sterile conditions . 5 Macedonian double lumen Bard Power Picc Solo PICC catheter inserted without difficulty. Pc Tech: Garland Da Silva MD Industrial Health Engineer: None. Complications/Medications: None. Catheter Tip Localization: Catheter tip position initially identified with an AP portable chest x-ray . Catheter position adjusted as necessary. Catheter Length: 45 cm. Dressing: Standard dry sterile dressing kit used to secure catheter. Patient Condition: Patient tolerated procedure well. Discharged in stable condition. Orders: Standard wound care and dressing change orders written. Reading: PICC line placement as above.
[2018-10-09] MEDS: HEPARIN 500 UNIT/5 ML SYRINGE FOR CENTRAL LINE IVP PRN ×2 (15:56→15:57)
[2018-10-09] MEDS: Insulin Glargine SoloStar Inj 100 UNIT/ML INSULN.PEN SUBCUT SCH (21:10)
[2018-10-10] MEDS: HYDROcodone-APAP 7.5 MG-325 MG TABLET PO PRN ×3 (01:17→10:45)
[2018-10-10 04:27] VITALS: RESP 18
[2018-10-10] MEDS: KETOROLAC 15 MG/1 ML VIAL IVP PRN (04:38)
--- NOTE | 2018-10-10 07:12 | DCSUMMARY ---
Hospitalization Summary Admit Date: 10/06/2018 Discharge Date: 10/10/18 Hospital Course: Discharge diagnoses 1. Recurrent pyelonephritis secondary to Klebsiella infection 2. Nephrolithiasis 3. History of low back pain and previous back surgery 4. Newly diagnosed diabetes 5. History of tobacco abuse 6. Hypokalemia 7. Calcification in the coronary artery vessels, need follow-up 8. Hepatosplenomegaly with fatty infiltration of the liver 9. Sinus tachycardia probably secondary to the infection/inflammation 10. Possible pulmonary fibrosis Hospital course This is a 53 years old female with medical history significant for history of chronic back pain with history of back surgery in May who presented to the hospital with right flank pain and cloudy urine. Early September she presented to the hospital and was diagnosed with pyelonephritis a CT at that time did show nonobstructing stones in the right kidney she was treated with with one IV dose of Rocephin and then she was put on oral Keflex for 10 days the growth showed Klebsiella. However a week prior to presentation she started to have symptoms because of the symptoms this time she came in again to the hospital and was found to have pyelonephritis and was admitted to the hospital by Dr. Maharaj please see his note. In addition to the pyelonephritis it was found that her sugar was high. A1c was 10.4. She was diagnosed with diabetes. She was put initially on Rocephin, and put on sliding scale and Lantus. The night I took over her we noted she had persistent fever up to 103, her heart rate was elevated like 130s and because of the recurrence infection and presence of the kidney stones I had a concern there may be some resistance to antibiotics that she was exposed before or had a different bacteria so we switched her to meropenem. The tachycardia persisted but the fever resolved with the treatment. We did several several investigations including repeat CT abdomen with contrast to see if there is any abscess and there was no abscess. We did a CT of the chest and there was no PE, they thought they may be some pulmonary edema versus fibrosis. Clinically it was very hard to tell, we did cardio dynamics and the thoracic fluid content was midrange. We started cutting back on the fluid and I think the treatment itself rather than the less thoracic fluid content caused the tachycardia to improve. There was a calcium deposit noted in coronary vessels and I did inform the patient that at one point in time probably need to have a stress test done. The growth came back positive for Klebsiella the same that she had before and because of the recurrence of the pyelonephritis I spoke with infectious disease they suggested the few days more of IV antibiotics and then switched to oral antibiotics. I think probably need to follow-up with them in case there is a recurrence of the infection. The size of the stones looks a small to me but suggested that she gets an opinion from a urologist. For her diabetes would discharge her on Lantus. In the future they may look at the addition of metformin. On the day of discharge she was feeling better no CVA tenderness no fever and heart rate did slow down so she was discharged home on IV antibiotics Rocephin 2 g for additional 5 days and then oral antibiotics with cefuroxime after that. Discharge instruction Diet diabetic Activity tolerated medications Current Medication(s) Medication Instructions Recorded Confirmed Type Hydrocodone/Acetaminophen 1 ea PO Q6-8H PRN 10/06/18 10/06/18 History [Hydrocodone-Acetamin 7.5-325] Ibuprofen 600 mg PO Q6H PRN 10/06/18 10/06/18 History Blood Sugar Diagnostic [Contour] 1 ea MC TID #90 strip 10/10/18 Rx Cefuroxime Axetil [Cefuroxime] 500 mg PO BID #8 tab 10/10/18 Rx Insulin Glargine SoloStar Inj 10 unit SUBCUT BEDTIME #1 10/10/18 Rx [Lantus SoloStar Inj] [email or web address] Lancets 1 ea MC TID #90 ea 10/10/18 Rx Pen Needle, Diabetic [Pen Colton] 1 ea MC DAILY #30 dis.needle 10/10/18 Rx Potassium Chloride [Klor-Con] 20 meq PO BID #14 tab 10/10/18 Rx Follow-up with PCP 1-2 weeks, with the infectious disease next week and with urology Condition at discharge was stable for discharge Exam - Vitals Vital Signs: Vital Signs Temperature 97.6 F Temperature Source Temporal Artery Scan Pulse Rate [Apical] 113 Pulse Rate [Pulse Oximeter 104 Right] Pulse Rate 100 Respiratory Rate 18 Blood Pressure [Right Arm] 149/96 Blood Pressure [Left Arm] 158/87 Blood Pressure 117/71 Pulse Ox 94 Oxygen Flow Rate 1 Oxygen Delivery Method Room Air Height 5 ft 3 in Weight 189 lb - General General Appearance: No Acute Distress, Cooperative - Head Head Exam: Normal Inspection - Eye Eye Exam: POSITIVE: Normal Appearance - ENT ENT Exam: POSITIVE: Normal Exam - Neck Neck Exam: Normal Inspection - Respiratory Respiratory Exam: POSITIVE: Clear to Auscultation - Bilaterally - Cardiovascular Cardiovascular Exam: POSITIVE: RRR - GI/Abdominal GI/Abdominal Exam: POSITIVE: Normal Bowel Sounds, Non Tender, Non Distended, Soft, No Organomegaly - Rectal Rectal Exam: POSITIVE: Deferred - External Exam: POSITIVE: Deferred Exam: POSITIVE: Deferred - Extremities Extremities Exam: POSITIVE: Normal Inspection - Back Back Exam: POSITIVE: Normal Inspection - Neurological Neurological Exam: POSITIVE: Alert, Oriented x 3, CN II-XII Intact, No Facial Droop, Speech Intact / Clear, Moves All Extremities Equally - Psychiatric Psychiatric Exam: POSITIVE: Normal Affect Patient Problems - Patient Problem List (1) Pyelonephritis Status: Acute Code(s): N12 - Tubulo-interstitial nephritis, not specified as acute or chronic Category: Medical (2) New onset type 2 diabetes mellitus Status: Acute Code(s): E11.9 - Type 2 diabetes mellitus without complications Category: Medical (3) Chronic back pain Status: Acute Code(s): M54.9 - Dorsalgia, unspecified; G89.29 - Other chronic pain Category: Medical (4) Tachycardia Status: Acute Code(s): R00.0 - Tachycardia, unspecified Category: Medical (5) Hypokalemia Status: Acute Code(s): E87.6 - Hypokalemia Category: Medical
[2018-10-10] MEDS: Insulin Lispro Flexpen 300 UNIT/3 ML INSULN.PEN SUBCUT SCH ×2 (07:37→11:31)
[2018-10-10] MEDS: CYCLOBENZAPRINE 10 MG TABLET PO SCH (09:01)
[2018-10-10] MEDS: POTASSIUM CHLORIDE 20 MEQ TAB PO SCH (09:01)
[2018-10-10 11:14] VITALS: BP 156/95; TEMP 97.4; O2SAT 95
[2018-10-10] MEDS: cefTRIAXone Inj 2 GM in Sodium Chloride 0.9% 100 ML IV SCH (11:56)
[2018-10-10] MEDS: HEPARIN 500 UNIT/5 ML SYRINGE FOR CENTRAL LINE IVP PRN (12:02)
== END 2018-10-10 13:47 | disposition home or self-care (01) | DRG 690 ==
LOC: ER 09:54 → MED/SURG 13:07
PROVIDERS: ADMIT Internal Medicine; ATTEND Internal Medicine